=== PATIENT | male | born 1945 | race Caucasian/White ===

== ENCOUNTER 2022-02-03 09:36 | Emergency (ER) | payer MEDICARE ==
[2022-02-03] MEDS ORDERED: Sodium Chloride 0.9% 1,000 ML IV SCH ×2 (10:30→12:00)
[2022-02-03 11:02] LABS: ESTIMATED GFR 48 mL/min (>60)
[2022-02-03] MEDS ORDERED: Dexamethasone 4 MG/ML SDV IVPUSH ONE (14:07)
[2022-02-03 15:43] VITALS: BP 108/60; PULSE 90
== END 2022-02-03 17:00 ==
LOC: JP.ED 09:36
DX: C79.31 Secondary malignant neoplasm of brain (principal); E86.0 Dehydration
CPT/HCPCS: 36415; 70450; 80053; 85025; 96361; 96374; 99285; J1100; J7030